=== PATIENT | female | born 1995 | race Caucasian/White ===

== ENCOUNTER 2017-02-27 20:46 | Emergency (ER) | payer BC ==
[~2017-02-27] VITALS: Ht 175.3 cm; Wt 66.7 kg
[~2017-02-27 20:46] MED LIST: BCPILLS PO; IBUP-103 PO
[2017-02-27 20:56] VITALS: TEMP 37; Ht 175.3 cm; Wt 66.7 kg
--- NOTE | 2017-02-27 22:15 | DIAGNOSTIC IMAGING REPORT ---
ADDENDUM For further clarification, at the site of clinical interest in the posterior calf, no sonographic abnormality detected. This implies that the soft tissues are normal. Hence, no hematoma or other fluid collection. Electronically signed by: Tree Taveras M.D. 02/27/2017 10:40 PM Dictated Date/Time: 02/27/2017 10:40 PM ORIGINAL REPORT R VENOUS DOPP LOWER EXT UNILAT CLINICAL HISTORY: 21 years-old Female presenting with RLE swelling/bruising - eval possible DVT. TECHNIQUE: Real-time grayscale and color and spectral Doppler ultrasound imaging of the veins of the right lower extremity was performed. Compression and augmentation were also utilized. COMPARISON: None. FINDINGS: Right: Common femoral vein: Patent. Femoral vein: Patent. Greater saphenous vein: Patent. Popliteal vein: Patent. Calf veins: Patent. Other: At the site of clinical interest in the posterior calf, no sonographic abnormality detected. IMPRESSION: No evidence of deep venous thrombosis. Electronically signed by: Tree Taveras M.D. 02/27/2017 10:14 PM Dictated Date/Time: 02/27/2017 10:13 PM
[2017-02-27 22:57] VITALS: BP 130/98; PULSE 61; O2SAT 98
--- NOTE | 2017-02-27 23:35 | EMERGENCY ROOM VISIT NOTE ---
History First contact with patient: 21:13 Chief Complaint: CALF PAIN Stated Complaint: LARGE BRUISE ON CALF WITH SWELLING History of Present Illness The patient is a 21 year old female who presents to the Emergency Room with complaints of bruising and swelling of her right calf. The patient reports that she placed soccer frequently, and reports that she has injuries to her legs all the time. The patient is concerned because of the amount of swelling and bruising of her right leg. She rates her discomfort a 6 out of 10 with weightbearing. The patient denies any prior history of DVT, and does not take any blood thinners. Review of Systems 10 system review was performed and was negative except for pertinent positives and negatives as indicated in history of present illness Past Medical/Surgical History Medical Problems: (1) No significant past medical history Surgical Problems: (1) History of arthroscopy of right ankle (2) History of arthroscopy of right knee (3) History of tonsillectomy (4) History of wisdom tooth extraction Family History FH: hypertension Social History Smoking Status: Never Smoker Alcohol Use: occasionally Drug Use: none Marital Status: single Occupation Status: [employer] student Current/Historical Medications Scheduled Control Pills ( Control Pills), 1 TAB PO DAILY Scheduled PRN Ibuprofen Tab (Advil), 400 MG PO Q6 PRN for Headache or Pain Physical Exam Vital Signs Date Time Temp Pulse Resp B/P (MAP) Pulse Ox O2 Delivery O2 Flow Rate FiO2 02/27/17 22:57 61 130/98 98 02/27/17 20:56 37.0 73 20 157/97 100 Room Air Physical Exam CONSTITUTIONAL: Healthy and well nourished. Alert and oriented X 3 with positive affect. HEENT: Normocephalic, atraumatic. Pupils equal, round and reactive. NECK: Full active range of motion without discomfort. MUSCULOSKELETAL: Examination shows ecchymosis of bilateral legs. The patient has more edema and ecchymosis over the anteromedial right calf. The calf is soft and supple. No tenderness to palpation through the bony landmarks of the ankle or leg. Varus and valgus stress does not cause any discomfort. No popliteal masses. Pedal pulses are intact. INTEGUMENTARY: No rash or other significant dermatologic conditions noted. NEUROLOGIC: Bilateral feet are sensory intact. Medical Decision & Procedures ER Provider Diagnostic Interpretation: Venous and local ultrasound of the right lower extremity does not show any obvious deep vein thrombosis or hematoma formation. Radiologist report is as follows: ADDENDUM For further clarification, at the site of clinical interest in the posterior calf, no sonographic abnormality detected. This implies that the soft tissues are normal. Hence, no hematoma or other fluid collection. Electronically signed by: Tree Taveras M.D. 02/27/2017 10:40 PM Dictated Date/Time: 02/27/2017 10:40 PM ORIGINAL REPORT R VENOUS DOPP LOWER EXT UNILAT CLINICAL HISTORY: 21 years-old Female presenting with RLE swelling/bruising - eval possible DVT. TECHNIQUE: Real-time grayscale and color and spectral Doppler ultrasound imaging of the veins of the right lower extremity was performed. Compression and augmentation were also utilized. COMPARISON: None. FINDINGS: Right: Common femoral vein: Patent. Femoral vein: Patent. Greater saphenous vein: Patent. Popliteal vein: Patent. Calf veins: Patent. Other: At the site of clinical interest in the posterior calf, no sonographic abnormality detected. IMPRESSION: No evidence of deep venous thrombosis. ED Course Patient history and physical exam were performed. Nurse's notes were reviewed. Vital signs were reviewed, showing an elevated blood pressure 157/97. The patient refused any analgesics. Ultrasound of the right lower extremity is negative for deep vein thrombosis and hematoma formation. The patient reports that she does have crutches at home. She was encouraged to use the crutches as needed to avoid limping. An Jamin wrap was applied. The patient was encouraged to watch for any developing hardness of the calf, or worsening pain. She was instructed to follow-up with orthopedics as needed. The patient was happy with plan of care, voiced understanding of all discharge instructions, and denied any significant pain at the conclusion of my exam. It is noted that the patient had 2 elevated blood pressure readings while in the emergency department. The patient reports that she does have a remote history of elevated blood pressure. She was instructed to follow-up with her PCP for blood pressure recheck. Medical Decision Medication Reconcilliation Current Medication List: was personally reviewed by me Blood Pressure Screening Patient's blood pressure: Elevated blood pressure Blood pressure disposition: Referred to PCP Impression Primary Impression: Traumatic ecchymosis of right lower leg Additional Impression: Elevated blood pressure reading Departure Information Dispostion Home / Self-Care Forms HOME CARE DOCUMENTATION FORM, IMPORTANT VISIT INFORMATION Patient Instructions My [facility] Additional Instructions Intermittently apply heat to leg. Use your crutches as needed to avoid limping. Apply an Jamin wrap to reduce any further internal bleeding if present. Ibuprofen or Tylenol as needed for pain. Follow-up with orthopedics for any persistent pain, swelling, tingling/numbness or fever. Problem Qualifiers Primary Impression: Traumatic ecchymosis of right lower leg Encounter type: initial encounter Qualified Codes: S80.11XA - Contusion of right lower leg, initial encounter
== END 2017-02-27 22:58 | disposition home or self-care (01) ==
LOC: C.EDB 20:48 → C.EDD 22:58
DX: S80.11XA Contusion of right lower leg, initial encounter (principal); R03.0 Elevated blood-pressure reading, without diagnosis of hypertension; X58.XXXA Exposure to other specified factors, initial encounter; Z98.818 Other dental procedure status; Z90.89 Acquired absence of other organs; Z98.890 Other specified postprocedural states; Z82.49 Family history of ischemic heart disease and other diseases of the circulatory system